=== PATIENT | female | born 1960 | race Caucasian/White ===

== ENCOUNTER 2022-01-02 16:36 | Outpatient (CLI) | payer OTHER, SELFPAY | END 2022-01-02 16:37 | disposition home or self-care (01) | LOC: KYNREF 16:37 | PROVIDERS: PCP Nurse Practitioner Family; Visit Provider Nurse Practitioner Family | DX: N39.0 Urinary tract infection, site not specified (principal); M19.90 Unspecified osteoarthritis, unspecified site | CPT/HCPCS: 87086; 87186 ==

== ENCOUNTER 2022-06-14 10:36 | Outpatient (CLI) | payer OTHER, SELFPAY ==
[2022-06-14 14:46] LABS: Basophils Absolute Auto 0.05 K/uL (0.00-0.30); Eosinophils Absolute Auto 0.08 K/uL (0.00-0.50); Eosinophils Percent Auto 1.6 % (0.0-7.0); Hematocrit 42.5 % (33.0-51.0); Hemoglobin* 14.3 gm/dL (12.0-16.0); Lymphocytes Absolute Auto 1.23 K/uL (0.90-2.90); Lymphocytes Percent Auto 24.7 % (20-44); Mean Corpuscular HGB Conc 34 gm/dL (32-36); Mean Corpuscular Hemoglobin 31 pg (26-34); Mean Corpuscular Volume 92 fL (80-100); Neutrophils Absolute Auto 3.22 K/uL (1.7-7.0); Neutrophils Percent Auto 64.7 % (42.0-72.0); Platelet Count* 220 K/uL (140-440); RDW Coefficient of Variation % 11.9 % (11.5-15.5); Red Blood Count 4.62 m/uL (4.00-5.20); White Blood Count* 4.98 K/uL (4.50-11.00)
[2022-06-14 14:54] LABS: Slide Review Reflex No
[2022-06-14 15:14] LABS: Chloride* 109 mmol/L (96-114); Potassium* 3.5 mmol/L (3.6-5.1); Sodium* 143 mmol/L (135-149)
[2022-06-14 15:16] LABS: Creatinine* 0.6 mg/dL (0.5-1.5); Estimated Glomerular Filt Rate 103 ml/min
[2022-06-14 15:17] LABS: Blood Urea Nitrogen* 14 mg/dL (7-30); Calcium* 9.4 mg/dL (8.4-10.6); Carbon Dioxide* 23 mmol/L (20-32); Glucose* 104 mg/dL (60-115)
== END 2022-06-14 10:37 | disposition home or self-care (01) ==
PROVIDERS: PCP Nurse Practitioner Family; Visit Provider Nurse Practitioner Family
DX: Z01.818 Encounter for other preprocedural examination (principal)
CPT/HCPCS: 80048; 85025; 87086

== ENCOUNTER 2022-06-15 12:40 | Outpatient (CLI) | payer OTHER, SELFPAY | END 2022-06-15 12:41 | disposition home or self-care (01) | LOC: KYNREF 15:46 | PROVIDERS: PCP Nurse Practitioner Family; Visit Provider Nurse Practitioner Family | DX: Z01.818 Encounter for other preprocedural examination (principal) | CPT/HCPCS: 87086; 87186 ==

== ENCOUNTER 2022-06-21 10:18 | Outpatient (CLI) | payer OTHER, SELFPAY | END 2022-06-21 10:19 | disposition home or self-care (01) | LOC: NFLDREF 10:18 | PROVIDERS: PCP Nurse Practitioner Family; Visit Provider Nurse Practitioner Family | DX: N39.0 Urinary tract infection, site not specified (principal) | CPT/HCPCS: 87086 ==

== ENCOUNTER 2022-11-29 15:15 | Outpatient (CLI) | payer OTHER, SELFPAY ==
--- NOTE | 2022-11-29 15:30 | CRLHL7_ITS ---
For Patients: As a result of the Century Cures Act, medical imaging exams and procedure reports are released immediately into your electronic medical record. You may view this report before your referring provider. If you have questions, please contact your health care provider. DXA BONE MINERAL DENSITY STUDY Current height (in): 67.0. Weight (lb): 275.0. Menopause age: 54. Ethnicity: White. Reason for exam: Screening. 1. Have you had a previous hip or vertebral fracture? No. 2. Have you had any fractures during your adult life which did not result from significant trauma (e.g., auto accident)? No. 3. Did either of your parents have a hip fracture? No. 4. Do you smoke? No. 5. Have you ever taken Glucocorticoids? No. 6. Do you have rheumatoid arthritis? No. 7. Do you have secondary osteoporosis? No. 8. Do you drink 3 or more alcoholic drinks per day? No. 9. Are you being treated for osteoporosis? No. 10. Have you ever taken any of the following medications: Actonel, Evista, Fosamax, Miacalcin, Reclast, Boniva, Forteo, HRT (i.e. estrogen/hormone therapy), Protelos, Prolia, Vitamin D, Calcium, other ??? please specify. ANSWER: Yes, vitamin D, calcium. 11. Do you have any of the following medical conditions: Anorexia or bulimia, asthma or emphysema, end stage renal disease, hyperparathyroidism, any seizure disorders, cancer, inflammatory bowel diseases, hysterectomy, other ??? please specify. ANSWER: No. 12. What was your maximum height (inches)? 67. 13. Do you perform weight bearing exercise regularly? No. 14. Do you regularly consume dairy products? Yes. 15. Do you drink caffeinated beverages? Yes. 16. At what age did your period start? 14. 17. Are you premenopausal? No. 18. How many full term pregnancies have you had? 0. 19. Have you ever missed your period for more than 6 months in a row (not including or menopause)? No. TECHNIQUE: Bone mineral density study was performed using the Dtime. FINDINGS: The results of the study expressed as bone mineral density (BMD) are as follows: Lumbar spine L1 to L4: BMD: 1.138 g/cm2. T-score: 0.8. Z-score: 2.2. Neck Left: BMD: 0.791 g/cm2. T-score: -0.5. Z-score: 0.8. Total Left: BMD: 1.041 g/cm2. T-score: 0.8. Z-score: 1.8. Radius Left 33%: BMD: 0.690 g/cm2. T-score: -0.1. Z-score: 1.2. IMPRESSION: Normal bone density. Scottie Santiago M.D. Diagnostic Radiologist [email or web address] Transcribed: 12:16 pm DW/Dictated by: Scottie Santiago MD @ 12/03/2022 10:28:00 AM (Electronically Signed)
== END 2022-11-29 15:16 | disposition home or self-care (01) ==
LOC: RAD 15:17
PROVIDERS: PCP Nurse Practitioner Family; Visit Provider Nurse Practitioner Family
DX: Z13.820 Encounter for screening for osteoporosis (principal)
CPT/HCPCS: 77080

== ENCOUNTER 2023-05-28 16:23 | Outpatient (CLI) | payer OTHER, SELFPAY | END 2023-05-28 16:24 | disposition home or self-care (01) | LOC: KYNREF 16:26 | PROVIDERS: PCP Nurse Practitioner Family; Visit Provider Nurse Practitioner Family | DX: R19.7 Diarrhea, unspecified (principal); L98.9 Disorder of the skin and subcutaneous tissue, unspecified | CPT/HCPCS: 83516; 86364 ==

== ENCOUNTER 2023-08-15 10:38 | Outpatient (CLI) | payer OTHER, SELFPAY | END 2023-08-15 10:39 | disposition home or self-care (01) | LOC: NFLDREF 08-28 09:32 | PROVIDERS: PCP Nurse Practitioner Family; Referring Provider Nurse Practitioner Family; Visit Provider Physician Assistant | DX: N39.0 Urinary tract infection, site not specified (principal) | CPT/HCPCS: 87086 ==

== ENCOUNTER 2024-01-23 11:43 | Outpatient (CLI) | payer OTHER, SELFPAY ==
--- OUTSIDE RECORDS SUMMARY | 2024-01-24 10:35 | XMS_ITS ---
Author Organization [facility] Address [address] [place] [address] Care Team Providers Care Automation Qtp Tester Name Role Phone Unavailable Unavailable Unavailable Surgery Details Not on file Complications Check Surgery Details section. Procedure Estimated Blood Loss Check Surgery Details section. Procedure Findings Check Surgery Details section. Procedure Specimens Taken Check Surgery Details section.
--- OUTSIDE RECORDS SUMMARY | 2024-01-24 10:35 | XMS_ITS | Clinical Summary ---
Author Organization [facility] Address [address] [place] [address] Care Team Providers Care Member Of The Legislative Assembly Name Role Phone Elsewhere, Pcp Primary Care Provider Unavailabl e Source Comments Patient records contain information from all sites at [facility]. For routine questions regarding patient records, call [phone] during business hours, M-F 8:00 AM - 5:00 PM Central Time. Record requests for emergency care only can be directed to [phone] at any time.[facility] Allergies No known active allergies Medications Medication Sig Dispensed Refills Start Date End Date Status lisinopril-hydroCHLORO thiazide (PRINZIDE,ZESTORETIC) 20-12.5 mg per tablet Take 1 tablet by mouth daily. 04/27/2022 Active Active Problems Problem Noted Date Diagnosed Date Hypertension Essential Primary 06/27/2022 Primary Osteoarthritis Hip Right 05/08/2022 Overview (05/08/2022): Added automatically from request for surgery [id number] Social History Tobacco Use Types Packs/Day Years Used Date Smoking Tobacco: Never Smokeless Tobacco: Never Tobacco Cessation:Counseling Given: Not Answered Alcohol Use Standard Drinks/Week Comments Not Currently 0 (1 standard drink = 0.6 oz pur e alcohol) Humiliation, Afraid, Rape, and Kick questionnair e Answer Date Recorded Within the last year, have y ou been afraid of your partner or ex-partner? No 07/05/2022 Within the last year, have y ou been humiliated or emotionally abused in other ways by your partner or ex-partner? No Within the last year, have y ou been kicked, hit, slapped, or otherwise physically hurt by your partner or ex-partner? No 07/05/2022 Within the last year, have y ou been raped or forced to have any kind of sexual activity by your partner or ex-partner? No 07/05/2022 Social Connection and Isolat ion Panel [NHANES] Answer Date Recorded In a typical week, how many times do you talk on the phone with family, friends, or neighbors? More than three times a week 07/05/2022 How often do you get togethe r with friends or relatives? More than three times a week 07/05/2022 How often do you attend chur or yarsanism services? More than 4 times per year 07/05/2022 Do you belong to any clubs o r organizations such as anabaptism groups, unions, fraternal or athletic groups, or school groups? Yes 07/05/2022 How often do you attend meet ings of the clubs or organizations you belong to? More than 4 times per year 07/05/2022 Are you , , di vorced, , never , or living with a partner? Never 07/05/2022 AUDIT-C Answer Date Recorded Q1: How often do you have a drink containing alc ohol? Monthly or less 07/05/2022 Q2: How many drinks containi ng alcohol do you have on a typical day when you are drinking? 1 or 2 07/05/2022 Q3: How often do you have si x or more drinks on one occasion? Never 07/05/2022 Overall Financial Resource Strain (CARDIA) Answe r Date Recorded How hard is it for you to pa y for the very basics like food, housing, medical care, and heating? Not very hard 07/05/2022 [facility] [place] [facility] Occupat ional [facility] - Occupational Stress Questionnaire Answer Date Recorded Do you feel stress - tense, restless, nervous, or anxious, or unable to sleep at night because your mind is troubled all the time - these days? Not at all 07/05/2022 Exercise Vital Sign Answer Date Recorde d On average, how many days pe r week do you engage in moderate to strenuous exercise (like a brisk walk)? 0 days 07/05/2022 On average, how many minutes do you engage in exercise at this level? 150+ min 07/05/2022 Hunger Vital Sign Answer Date Recorded Within the past 12 months, y ou worried that your food would run out before you got the money to buy more. Never true 07/05/19 Within the past 12 months, t he food you bought just didn't last and you didn't have money to get more. Never true 07/05/2022 PRAPARE - Transportation Answer Date Re corded In the past 12 months, has l ack of transportation kept you from medical appointments or from getting medications? No 06/11 In the past 12 months, has l ack of transportation kept you from meetings, work, or from getting things needed for daily living? No 07/05/2022 Housing Stability Vital Sign Answer Jose e Recorded In the last 12 months, was t here a time when you were not able to pay the mortgage or rent on time? No 07/05/2022 In the last 12 months, how many places have you lived? 1 07/05/2022 In the last 12 months, was t here a time when you did not have a steady place to sleep or slept in a long-term (including now)? No 07/05/2022 Nutrition Answer Date Recorded Nutrition: EVOO Fat Source Yes 07/05 On average, how many serving s of fruits and vegetables do you eat per day (serving size is equal to 1 cup or approximately the size of a tennis ball)? 2-3 07/05/2022 Dental Answer Date Recorded Dental: Regular Dentist Yes 07/05/19 Employment Answer Date Recorded Employment status Employed but not working due t o illness or injury 07/05/2022 Sex and Gender Information Value Date Recorded Sex Assigned at Female 08/11/2022 4:09 PM WELLNESS SPA MANAGER Gender Identity Female 08/11/2022 4:09 PM WELLNESS SPA MANAGER Sexual Orientation Choose not to disclose 2022 4:09 PM WELLNESS SPA MANAGER Last Filed Vital Signs Vital Sign Reading Time Taken Comments Blood Pressure 141/65 06/27/2022 1:18 PM WELLNESS SPA MANAGER Pulse 75 06/27/2022 1:18 PM WELLNESS SPA MANAGER Temperature 36.7 ??C (98.1 ??F) 06/27/2022 1:18 PM CS T Respiratory Rate 16 06/27/2022 9:00 AM WELLNESS SPA MANAGER Oxygen Saturation 97% 06/27/2022 1:18 PM WELLNESS SPA MANAGER Inhaled Oxygen Concentration - - Weight 130 kg (286 lb 2.2 oz) 06/26/2022 6:45 AM WELLNESS SPA MANAGER Height 172 cm (5' 7.72) 06/26/2022 6:45 AM WELLNESS SPA MANAGER Body Mass Index 43.87 06/26/2022 6:45 AM WELLNESS SPA MANAGER Plan of Treatment Health Maintenance Due Date Last Done Comments CT Colonography 1962 Cervical Cancer Screening 1962 Cologuard 1962 Colonoscopy 1962 Colorectal Cancer Screening 1962 Creatinine Level (Kidney Function Test) 1962 FIT 1962 Fasting Glucose for Diabetes Screening 1962 HIV Screening 1962 Hepatitis C Screening 1962 Lipid (Cholesterol) Screening 1962 Office Visit for Blood Pressure Check / Re-check 1962 Potassium Level 1962 Sodium Level 1962 Zoster Vaccines (1 of 2) 2012 Mammogram 10/05/2022 10/05/2021 Depression Screening (Annual PHQ-2) 06/10/2023 Influenza Vaccine (#1) 2024 , 03/07/2022, 03/08/2021, Additional history exists DTaP,Tdap,and Td Vaccines (3 - Td or Tdap) 02/16/2030 02/17/2020, 06/17/2009 COVID-19 Vaccine Completed 04/05/2023, , 10/18/2021, Additional history exists Pneumococcal vaccine (0-64 years) Aged Out No longer eligible based on patient's age to complete this topic Medical Devices Implanted Type Area Car Bracer Device Identifier Shelf Expiration Date Model / Serial / Lot Scrw Hex 6.5x25 - [id number] Implanted:Qty : 1 on 06/26/2022 by Javier Stephen M.D. at [facility] Hip Implant Right: Hip [place] [id number] 03/31/2025 4065-2262 / / [id number] Lnr X3 10d Dontae 32 - [id number] Implanted:Qty : 1 on 06/26/2022 by Javier Stephen M.D. at [facility] Hip Implant Right: Hip [place] [id number] 10/23/2022 623-10-32 E / / [id number] Shll Acet Trd Chl 52e - [id number] Implanted:Qty : 1 on 06/26/2022 by Javier Stephen M.D. at [facility] Hip Implant Right: Hip [place] [id number] 03/19/2027 702-04-52 E / / [id number] Accolade Ii 127 Neck Angle Hip Stem Implanted:Qty : 1 on 06/26/2022 by Javier Stephen M.D. at [facility] Hip Implant Right: Hip [place] [id number] 04/24/2027 1474-7493 / / [id number] Fem Hd Blx -4x32 - [id number] Implanted:Qty : 1 on 06/26/2022 by Javier Stephen M.D. at [facility] Hip Implant Right: Hip [place] [id number] 10/17/2026 6570-0-03 2 / / [id number] Knee Implant Knee Implant Bilatera l: Knee Procedures Procedure Name Priority Date/Time Associated Diagnosis Comments OUTSIDE MG MAMMOGRAM Routine 10/05/2021 3:50 PM CDT from Last 3 Months or Most Recently Relevant to Health Maintenance Results * MAMMO SCREEN, BILAT, W/CAD-Outside Mammogram (10/05/2021 3:50 PM CDT) Narrative IIMS - 03/19/2022 4:18 PM CDT This order has been created and auto-finalized to support the import of outside images. If available, original interpretation can be found on the Media Tab in Chart Review, in Document Viewer, or as an image in QREADS. If a re-interpretation or overread is required please follow defined workflow. ?? Provider Not In System IMG BI PROCEDURES IIMS NA from Last 3 Months or Most Recently Relevant to Health Maintenance Advance Directives For more information, please contact: [phone] Documents on File Type Date Recorded Patient Suction Worker Expl anation Advance Directives 06/04/2022 12:10 PM LUDY DY/ORGAN DONATION * Full Code (Latest Code Status on File) Date Activated Date Inactivated Comments 06/26/2022 11:01 AM 06/27/2022 3:50 PM Question Answer Comments Full Code: Not Discussed Due to: Patient not available Care Teams Member Of The Legislative Assembly Relationship Specialty Start Date End Date Elsewhere, Pcp PCP - General Internal Medicine 06/26/22
--- OUTSIDE RECORDS SUMMARY | 2024-01-24 10:35 | XMS_ITS | Referral Summary ---
Author Organization [facility] Address [address] [place] [address] Care Team Providers Care Delivery Analyst Name Role Phone Elsewhere, Pcp Primary Care Provider Unavailabl e Source Comments Patient records contain information from all sites at [facility]. For routine questions regarding patient records, call [phone] during business hours, M-F 8:00 AM - 5:00 PM Central Time. Record requests for emergency care only can be directed to [phone] at any time.[facility] Allergies No known active allergies Medications Medication Sig Dispensed Refills Start Date End Date Status lisinopril-hydroCHLORO thiazide (PRINZIDE,ZESTORETIC) 20-12.5 mg per tablet Take 1 tablet by mouth daily. 04/27/2022 Active Active Problems Problem Noted Date Diagnosed Date Hypertension Essential Primary 06/27/2022 Primary Osteoarthritis Hip Right 05/08/2022 Overview (05/08/2022): Added automatically from request for surgery [id number] Social History Tobacco Use Types Packs/Day Years [...] How often do you attend chur or scientologist services? More than 4 times per year 07/05/2022 Do you belong to any clubs o r organizations such as anglican groups, unions, fraternal or athletic groups, or [...] care, and heating? Not very hard 07/05/2022 [facility] [place] of Occupat ional Health - Occupational Stress [...] place to sleep or slept in a chcf (including now)? No 07/05/2022 Nutrition Answer Date [...] Sex Assigned at Female 08/11/2022 4:09 PM WHEAT WASHER Gender Identity Female 08/11/2022 4:09 PM WHEAT WASHER Sexual Orientation Choose not to disclose 2022 4:09 PM WHEAT WASHER Last Filed Vital Signs Vital Sign Reading Time Taken Comments Blood Pressure 141/65 06/27/2022 1:18 PM WHEAT WASHER Pulse 75 06/27/2022 1:18 PM WHEAT WASHER Temperature 36.7 ??C (98.1 ??F) 06/27/2022 1:18 PM CS T Respiratory Rate 16 06/27/2022 9:00 AM WHEAT WASHER Oxygen Saturation 97% 06/27/2022 1:18 PM WHEAT WASHER Inhaled Oxygen Concentration - - Weight 130 kg (286 lb 2.2 oz) 06/26/2022 6:45 AM WHEAT WASHER Height 172 cm (5' 7.72) 06/26/2022 6:45 AM WHEAT WASHER Body Mass Index 43.87 06/26/2022 6:45 AM WHEAT WASHER Plan of Treatment Not on file Medical Devices Implanted Type Area Envelope Adjuster Device Identifier Shelf Expiration Date Model / Serial / Lot Scrw Hex 6.5x25 - [id number] Implanted:Qty : 1 on 06/26/2022 by Javier Stephen M.D. at [facility] Hip Implant Right: Hip [place] [id number] 03/31/2025 1261-4189 / / [id number] Lnr X3 10d Dontae 32 - [id number] Implanted:Qty : 1 on 06/26/2022 by Javier Stephen M.D. at [facility] Hip Implant Right: Hip [place] [id number] 10/23/2022 623-10-32 E / / [id number] Shll Acet Trd Chl 52e - [id number] Implanted:Qty : 1 on 06/26/2022 by Javier Stephen M.D. at [facility] Hip Implant Right: Hip [place] [id number] 03/19/2027 702-04-52 E / / [id number] Accolade Ii 127 Neck Angle Hip Stem Implanted:Qty : 1 on 06/26/2022 by Javier Stephen M.D. at [facility] Hip Implant Right: Hip [place] [id number] 04/24/2027 8037-4193 / / [id number] Fem Hd Blx -4x32 - [id number] Implanted:Qty : 1 on 06/26/2022 by Javier Stephen M.D. at [facility] Hip Implant Right: Hip [place] [id number] 10/17/2026 6570-0-03 2 / [id number] Knee Implant Knee Implant Bilatera l: Knee [...] Advance Directives For more information, please contact: [phone] Documents on File Type Date Recorded Patient Photo Optics Technician Expl anation Advance Directives 06/04/2022 12:10 PM LUDY DY/ORGAN DONATION * Full Code (Latest Code Status on File) Date Activated Date Inactivated Comments 06/26/2022 11:01 AM 06/27/2022 3:50 PM Question Answer Comments Full Code: Not Discussed Due to: Patient not available Care Teams Delivery Analyst Relationship Specialty Start Date End Date Elsewhere, Pcp PCP - General Internal Medicine 06/26/22
== END 2024-01-23 11:44 | disposition home or self-care (01) ==
LOC: NFLDREF 01-24 10:32
PROVIDERS: PCP Nurse Practitioner Family; Referring Provider Nurse Practitioner Family; Visit Provider Nurse Practitioner Family
DX: R82.90 Unspecified abnormal findings in urine
CPT/HCPCS: 87086; 87186

== ENCOUNTER 2024-06-30 07:52 | Outpatient (CLI) | payer OTHER, SELFPAY | END 2024-06-30 07:53 | disposition home or self-care (01) | LOC: NFLDREF 07-01 00:52 | PROVIDERS: PCP Nurse Practitioner Family; Referring Provider Nurse Practitioner Family; Visit Provider Nurse Practitioner Family | DX: N39.0 Urinary tract infection, site not specified (principal); R31.9 Hematuria, unspecified; B96.20 Unspecified Escherichia coli [E. coli] as the cause of diseases classified elsewhere | CPT/HCPCS: 81001; 87086; 87186 ==

== ENCOUNTER 2024-07-02 11:02 | Outpatient (CLI) | payer OTHER, SELFPAY | END 2024-07-02 11:03 | disposition home or self-care (01) | PROVIDERS: PCP Nurse Practitioner Family; Visit Provider Nurse Practitioner Family | DX: E78.5 Hyperlipidemia, unspecified (principal); I10 Essential (primary) hypertension; D72.819 Decreased white blood cell count, unspecified | CPT/HCPCS: 80053; 80061; 85025 ==

== ENCOUNTER 2024-07-08 10:33 | Outpatient (CLI) | payer OTHER, SELFPAY | END 2024-07-08 10:34 | disposition home or self-care (01) | LOC: US 10:34 | PROVIDERS: PCP Nurse Practitioner Family; Visit Provider Nurse Practitioner Family | DX: R74.8 Abnormal levels of other serum enzymes (principal); K76.89 Other specified diseases of liver; K76.0 Fatty (change of) liver, not elsewhere classified | CPT/HCPCS: 76705 ==

== ENCOUNTER 2024-11-15 06:43 | Emergency (ER) | payer OTHER, SELFPAY ==
--- OUTSIDE RECORDS SUMMARY | 2009-07-13 06:30 | XMS_ITS | Continuity of Care Document ---
Author Organization [facility] Address [address] [address] [place] [address] Phone Care Team Providers Care Cotton Cleaner Name Role Phone Yasir Avina MD Unavailable Unavailable Allergies, Adverse Reactions, Alerts Substance Reaction Status Criticality No Known allergies Medications Medication Instructions Dosage Effective Dates (start - stop) Status Comments lisinopril-hydrochlorothiaz beatriz 20 mg-25 mg Tab Take one tablet by mouth daily - Active multivitamin Tab Take one tablet by mouth daily - Active Martinic 110 mg-0.5 mg Cap Use as directed 2009 - Active HIGH POTENCY IRON (unknown strength) Use BID per package Not Available - Active MiralaxBisacodylMagCit Colon Prep 2 tabs bisacodyl each containing 5 mg of bisacodyl 1-8.3 oz bottle Miralax (238 gm) 64 oz Gatorade liquid (NOT red; NOT powdered)Regular Gatorade , Gatorade G2 , Powerade or PoweradeZero are acceptable. 1-10 oz bottle Mag Citrate (NOT red) - Active Procedures Procedure Date Colonoscopy Flex; Dx (sep Pro) 10 Ugi Endo; Dx W/wo Collec Specm 10 Init Inpt Cons New/est Mod-hi 9 Ugi Endo; Dx W/wo Collec Specm 08 Advance Directives Directive Yes / No Effective Date File Name No Information Encounters Encounter Description Practice Location Reason(s) For Visit Diagnoses Date Provider Providers Copied on Encounter [facility], [address] [address], [place], [place], [address], tel:[phone] [facility] Hematochezia /melena Fe 0 Kailyn Cooley. [address] [facility] [address], [place], [id number], . tel:[phone] [facility], [address] [address], [place], [place], [address], [phone] [facility] Post-op Aftercare NecHematoche cammy/melenaBa riatric Surgery Status 0 No Information Init Inpt Cons New/est Mod-hi [facility], [address] [address], [place], [place], [address], [phone] [facility] No Information 9 No Information Referring Provider: Leonel Al, [address] [place], [address]. tel:[phone] [facility], [address] [address], [place], [place], [address], tel:[phone] [facility] No Information [address]. [address] [facility] [address], [place], [place], [id number], . tel:[phone] Referring Provider: Leonel Al, [address] [place], [address]. tel:[phone] Family History Family Member Type Diagnosis Age At Onset No Information Payers Payer name Insurance type Covered libertarian ID Authoriza tion(s) [employer] CI [id number] Social History Type Description Quantity Date Captured Comments Sex Female Smoking Status No Information Chief Complaint And Reason For Visit No Information Reason For Referral Reason For Referral No Information History Of Present Illness Encounter Date Complaint History Of Prese nt Illness No Information Functional Status Date Functional Assessmen t No Information Instructions Date Instruction Additional Infor mation No Information Assessments Type Assessment Date No Information Patient Care Teams Name Effective Dates (start - stop) Status Members No Information
--- OUTSIDE RECORDS SUMMARY | 2009-07-13 06:30 | XMS_ITS | Continuity of Care Document ---
Author Organization [facility] Address [address] [address] [place] [address] Phone Care Team Providers Care Magnetic Tester Name Role Phone Yasir Avina MD Unavailable [...] Diagnoses Date Provider Providers Copied on Encounter [facility], [address] [address], [place], [place], [address], tel:[phone] [facility] Hematochezia /melena Fe 0 Kailyn Cooley. [address] [facility] [address], [place], [id number], . tel:[phone] [facility], [address] [address], [place], [place], [address], [phone] [facility] Post-op Aftercare NecHematoche cammy/melenaBa riatric Surgery Status 0 No Information Init Inpt Cons New/est Mod-hi [facility], [address] [address], [place], [place], [address], [phone] [facility] No Information 9 No Information Referring Provider: Leonel Al, [address] [place], [address]. tel:[phone] [facility], [address] [address], [place], [place], [address], tel:[phone] [facility] No Information 9 [address]. [address] [facility] [address], [place], [place], [id number], . tel:[phone] Referring Provider: Leonel Al, [address] [place], [address]. tel:[phone] Family History Family Member Type Diagnosis Age At Onset No Information Payers Payer name Insurance type Covered alliance party ID Authoriza tion(s) [employer] CI [id number] Social History Type Description Quantity Date Captured [...]
[2024-11-15 06:45] VITALS: BP 176/109; PULSE 56; RESP 18; TEMP 36.9; O2SAT 100; BMI 45.4
[2024-11-15 07:07] LABS: Appearance Urine Slightly Cloudy (Clear); Bilirubin Urine Negative (Negative); Blood Urine Negative (Negative); Color Urine Yellow (Yellow); Glucose Urine Negative (Negative); Ketones Urine Negative (Negative); Leukocyte Esterase Urine 2+ (Negative); Nitrite Urine Negative (Negative); Protein Urine Negative (Negative); Urobilinogen Urine 0.2 (0.2-1.0); pH Urine 5.5 (5.0-8.5)
[2024-11-15 07:15] LABS: Bacteria Urine Many; Squamous Epithelial Cell Urine Moderate (None-Few); WBC Urine 25-50 (0-5)
--- NOTE | 2024-11-15 07:25 | ED_ITS ---
HPI - General Adult General Chief complaint: Abdominal Pain <Nia Young MD - Last Filed: 11/18/24 23:57> Stated complaint: abdominal pain <Nia Young MD - Last Filed: 11/18/24 23:57> Time Seen by Provider: 11/15/24 07:02 <Nia Young MD - Last Filed: 11/18/24 23:57> Source: patient <Nia Young MD - Last Filed: 11/18/24 23:57> Mode of arrival: ambulatory <Nia Young MD - Last Filed: 11/18/24 23:57> Limitations: no limitations <Nia Young MD - Last Filed: 11/18/24 23:57> History of Present Illness HPI narrative: 64-year-old female presents the emergency department with right flank pain that started last night. No fevers. Does feel mildly nauseated but no vomiting. Does true dysuria but does have some mild discomfort in the suprapubic region and what she describes as urgency and frequency but no true dysuria or burning. No vaginal discharge. Did try taking a her mg of ibuprofen about 5 hours ago and it did help somewhat. She is prone to urinary tract infections and has been told in the past if she develops flank pain with them, she should come to the emergency department or urgent care because she would need further imaging. She denies a history of resistant infection or antibiotic allergies. Does not believe she has had prior kidney infections. She does not have a personal history of kidney stones but does have a family history of such. Postmenopausal. No vaginal bleeding. Past medical history is notable for obesity, hypertension, arthritis of multiple sites. Home meds are amlodipine, hydrochlorothiazide. She is also using some medically tied for obesity and takes a baby aspirin. Nonsmoker. Only prior abdominal surgery is cholecystectomy. ROS is notable for the flank in urinary symptoms as above, otherwise denies times 12 systems. <Nia Young MD - Last Filed: 11/18/24 23:57> Related Data Home medications: Home Medications ?Medication ?Instructions ?Recorded ?Confirmed aspirin 81 mg tablet,delayed 81 mg PO QDAY 07/02/22 release Previous Rx's ?Medication ?Instructions ?Recorded meclizine 25 mg tablet 25 mg PO TID 10 days #30 tab s 10/02/22 amlodipine 5 mg tablet (Norvasc) 5 mg PO QDAY #90 tabs 07/02/24 hydrochlorothiazide 25 mg tablet 25 mg PO QAM #90 tabs 07/02/24 semaglutide 0.25 mg or 0.5 mg (2 0.25 mg (0.368 mL) aguilar bcut QWEEK 07/02/24 mg/3 mL) subcutaneous pen injector #1.84 mL (Ozempic) tamsulosin 0.4 mg capsule (Flomax) 0.4 mg PO DAILY #14 caps 11/15/24 <Nia Young MD - Last Filed: 11/18/24 23:57> Allergies/adverse reactions: Allergies Allergy/AdvReac Type Severity Reaction Status Date / Time No Known Drug Allergies Allergy Verified 07/02/24 10:19 <Nia Young MD - Last Filed: 11/18/24 23:57> [facility] Medical History: Medical History Sebaceous cyst ?L72.3 - Sebaceous cyst (ICD-10) Essential hypertension ?I10 - Essential (primary) hypertension (ICD-10) Morbid obesity ?E66.01 - Morbid (severe) obesity due to excess calories (ICD-10) Iron deficiency anemia ?D50.9 - Iron deficiency anemia, unspecified (ICD-10) Dupuytren's contracture of right hand ?M72.0 - Palmar fascial fibromatosis [Dupuytren] (ICD-10) History of benign breast biopsy ?Z98.890 - Other specified postprocedural states (ICD-10) <Nia Young MD - Last Filed: 11/18/24 23:57> Surgical History: Surgical History History of arthroplasty of right hip ?Z98.890 - Other specified postprocedural states (ICD-10) History of total right knee replacement ?Z96.651 - Presence of right artificial knee joint (ICD-10) History of total left knee replacement ?Z96.652 - Presence of left artificial knee joint (ICD-10) History of tonsillectomy ?Z90.89 - Acquired absence of other organs (ICD-10) History of Emmanuelle-en-Y gastric bypass ?Z98.84 - Bariatric surgery status (ICD-10) History of endometrial ablation ?Z98.890 - Other specified postprocedural states (ICD-10) History of cholecystectomy ?Z90.49 - Acquired absence of other specified parts of digestive tract (ICD- 10) <Nia Young MD - Last Filed: 11/18/24 23:57> Family History: Family History Father Stroke Heart disease Brother Diabetes Heart disease Coronary artery disease Brother Diabetes Stroke Mother High blood pressure Hyperlipidemia Prediabetes Other Osteoarthritis <iNa Young MD - Last Filed: 11/18/24 23:57> Social History: Social History Narrative: Not . No children. Non-smoker. No illicit drug use. Alcohol, rare. Smoking Status: Never smoker How often do you have a drink containing alcohol: never AUDIT-C Alcohol total score: 0 Non-prescribed substance use: denies use <Nia Young MD - Last Filed: 11/18/24 23:57> Exam Const: Vital Signs, click to edit/add: Vital Signs - 24 hr 11/15/24 06:45 Temperature 98.4 F Pulse Rate [Left P ulse Oximeter] 56 L Respiratory Rate 18 Blood Pressure [Ri ght Upper Arm] 176/109 H Pulse Oximetry 100 Oxygen Delivery Me thod Room Air <Nia Young MD - Last Filed: 11/18/24 23:57> Vital Signs, click to edit/add: Vital Signs - 24 hr 11/15/24 06:45 Temperature 98.4 F Pulse Rate [Left P ulse Oximeter] 56 L Respiratory Rate 18 Blood Pressure [Ri ght Upper Arm] 176/109 H Pulse Oximetry 100 Oxygen Delivery Me thod Room Air <Rai Hays MD - Last Filed: 11/15/24 10:13> Documenting provider has reviewed patient's vital signs: yes <Nia Young MD - Last Filed: 11/18/24 23:57> Common normals: no apparent distress and alert <MD Miguel Angel Berrios Last Filed: 11/18/24 23:57> General appearance: cooperative and well kempt <Nia Young MD - Last Filed: 11/18/24 23:57> Other: Appears well-nourished, well-hydrated, excellent historian. <Nia Young MD - Last Filed: 11/18/24 23:57> HENMT: Common normals: normocephalic <Nia Young MD - Last Filed: 11/18/24 23:57> Head and scalp: normocephalic <MD Miguel Angel Berrios Last Filed: 11/18/24 23:57> Mouth: oral and palatal mucosa normal <MD Miguel Angel Berrios Last Filed: 11/18/24 23:57> Eye: Common normals: conjunctivae normal <MD Miguel Angel Berrios Last Filed: 11/18/24 23:57> General eye: normal appearance of both eyes <MD Miguel Angel Berrios Last Filed: 11/18/24 23:57> Conjunctiva: conjunctiva(e) normal <MD Miguel Angel Berrios Last Filed: 11/18/24 23:57> Neck & C-Spine: Common normals: full ROM and no lymphadenopathy <MD Miguel Angel Berrios Last Filed: 11/18/24 23:57> General: normal visual inspection <MD Miguel Angel Berrios Last Filed: 11/18/24 23:57> Resp: Common normals: normal respiratory effort, no use of accessory muscles and clear to auscultation bilaterally <MD Miguel Angel Berrios Last Filed: 11/18/24 23:57> Effort & inspection: able to speak in complete sentences <MD Miguel Angel Berrios Last Filed: 11/18/24 23:57> Auscultation: clear to auscultation bilaterally <Nia Young MD - Last Filed: 11/18/24 23:57> Cardio: Common normals: regular rate, regular rhythm, S1 normal heart sound, S 2 normal heart sound and no murmurs <Nia Young MD - Last Filed: 11/18/24 23:57> Rate: regular rate <Nia Young MD - Last Filed: 11/18/24 23:57> Rhythm: regular rhythm <Nia Young MD - Last Filed: 11/18/24 23:57> Heart sounds: S1 normal and S2 normal <MD Miguel Angel Beriros Last Filed: 11/18/24 23:57> GI: Common normals: Normal to inspection, nondistended, normoactive bowel sounds present and soft to palpation <Nia Young MD - Last Filed: 11/18/24 23:57> Palpation: soft <Nia Young MD - Last Filed: 11/18/24 23:57> Other: Mild suprapubic tenderness but no rebound tenderness or guarding. I really cannot palpate her organs well enough to to discern any mass or enlargement. <Nia Young MD - Last Filed: 11/18/24 23:57> : Other: Mild right-sided CVA tenderness present, nothing on the left. <Nia Young MD - Last Filed: 11/18/24 23:57> Extremity: Common normals: normal to inspection and normal capillary refill <MD Miguel Angel Berrios Last Filed: 11/18/24 23:57> Other: Well-healed right total knee arthroplasty scar <MD Miguel Angel Berrios Last Filed: 11/18/24 23:57> Neuro: Sensorium/orientation: alert <MD Miguel Angel Berrios Last Filed: 11/18/24 23:57> Speech: speech normal <MD Miguel Angel Berrios Last Filed: 11/18/24 23:57> Psych: Appearance: well kempt <MD Miguel Angel Berrios Last Filed: 11/18/24 23:57> Attitude: engaged <Nia Young MD - Last Filed: 11/18/24 23:57> Activity/motor behavior: appropriate eye contact <Nia Young MD - Last Filed: 11/18/24 23:57> Insight: insight good <Nia Young MD - Last Filed: 11/18/24 23:57> Judgement: judgment good <Nia Young MD - Last Filed: 11/18/24 23:57> Skin: Common normals: no rashes or lesions noted <Nia Young MD - Last Filed: 11/18/24 23:57> General skin exam: no rashes or lesions noted <Nia Young MD - Last Filed: 11/18/24 23:57> Course Course ED Course: 64-year-old female with right flank pain suspicious for kidney stone versus pyelonephritis. Cannot exclude musculoskeletal pain, radiculopathy, pancreatitis, intestinal abnormality, amongst others. Recommended urinalysis. If signs of infection, will proceed with CT scan with contrast. If negative for infection but positive for blood, will proceed with CT without contrast suspicious more for kidney stone. She really has had quite a bit of ibuprofen this morning, I will order 5 mg of oxycodone with Zofran, place peripheral IV, obtain typical intra-abdominal labs and await findings. Will likely need to hand over care to incoming day shift partner. <Nia Young MD - Last Filed: 11/18/24 23:57> Vital Signs Vital signs: Initial Vital Signs Temperature 98.4 F 11/15/24 06:45 Temperature Source Oral 11/15/24 06:45 Pulse Rate 56 L 11/15/24 06:45 Pulse Rhythm Regular 11/15/24 06:45 Respiratory Rate 18 11/15/24 06:45 Blood Pressure 176/109 H 11/15/24 06:45 Blood Pressure Mean 131 H 11/15/24 06:45 Blood Pressure Position Sitting 11/15/24 06:45 Pulse Oximetry 100 11/15/24 06:45 Oxygen Delivery Method Room Air 11/15/24 06:45 Vital Signs Temperature 98.4 F 11/15/24 06:45 Pulse Rate 56 L 11/15/24 06:45 Respiratory Rate 18 11/15/24 06:45 Blood Pressure 176/109 H 11/15/24 06:45 Pulse Oximetry 100 11/15/24 06:45 Oxygen Delivery Method Room Air 11/15/24 06:45 Temperature 98.4 F 11/15/24 06:45 Pulse Rate 56 L 11/15/24 06:45 Respiratory Rate 18 11/15/24 06:45 Blood Pressure 176/109 H 11/15/24 06:45 Pulse Oximetry 100 11/15/24 06:45 Oxygen Delivery Method Room Air 11/15/24 06:45 <Nia Young MD - Last Filed: 11/18/24 23:57> Initial Vital Signs Temperature 98.4 F 11/15/24 06:45 Temperature Source Oral 11/15/24 06:45 Pulse Rate 56 L 11/15/24 06:45 Pulse Rhythm Regular 11/15/24 06:45 Respiratory Rate 18 11/15/24 06:45 Blood Pressure 176/109 H 11/15/24 06:45 Blood Pressure Mean 131 H 11/15/24 06:45 Blood Pressure Position Sitting 11/15/24 06:45 Pulse Oximetry 100 11/15/24 06:45 Oxygen Delivery Method Room Air 11/15/24 06:45 Vital Signs Temperature 98.4 F 11/15/24 06:45 Pulse Rate 56 L 11/15/24 06:45 Respiratory Rate 18 11/15/24 06:45 Blood Pressure 176/109 H 11/15/24 06:45 Pulse Oximetry 100 11/15/24 06:45 Oxygen Delivery Method Room Air 11/15/24 06:45 Temperature 98.4 F 11/15/24 06:45 Pulse Rate 56 L 11/15/24 06:45 Respiratory Rate 18 11/15/24 06:45 Blood Pressure 176/109 H 11/15/24 06:45 Pulse Oximetry 100 11/15/24 06:45 Oxygen Delivery Method Room Air 11/15/24 06:45 <Rai Hays MD - Last Filed: 11/15/24 10:13> Medications Administered Medications: Discontinued Medications Generic Name Dose Route Start Last Admin Trade Name Freq PRN Reason Stop Dose Admin Ondansetron HCl 4 mg 11/15/24 07:21 11/15/24 07:42 Ondansetron Odt 4 Mg Tab PO 11/15/24 07:22 4 mg ONCE ONE Administration Oxycodone HCl 5 mg 11/15/24 07:21 11/15/24 07:42 Oxycodone 5 Mg Tablet PO 11/15/24 07:22 5 mg ONCE ONE Administration <Nia Young MD - Last Filed: 11/18/24 23:57> Discontinued Medications Generic Name Dose Route Start Last Admin Trade Name Bubba PRN Reason Stop Dose Admin Ondansetron HCl 4 mg 11/15/24 07:21 11/15/24 07:42 Ondansetron Odt 4 Mg Tab PO 11/15/24 07:22 4 mg ONCE ONE Administration Oxycodone HCl 5 mg 11/15/24 07:21 11/15/24 07:42 Oxycodone 5 Mg Tablet PO 11/15/24 07:22 5 mg ONCE ONE Administration <Rai Hays MD - Last Filed: 11/15/24 10:13> Medical Decision Making [facility] Narrative Medical decision making narrative: Patient is a 64-year-old woman who presents with right flank pain. She has evidence of UTI as well as a punctate kidney stone. This time I did recommend plenty of fluids at home Flomax for the next 2 weeks straining of urine. Cipro floxacillin for 5 days and Vicodin as needed for the next several days no driving or using any machinery. Patient follow-up with her primary physicians coming week. <Rai Hays MD - Last Filed: 11/15/24 10:13> Lab Data Lab results reviewed: Yes I reviewed the patient's lab results <Nia Young MD - Last Filed: 11/18/24 23:57> Lab results narrative: Urinalysis suspicious for infection with leukocyte esterase, white cells and many bacteria. Will proceed with CT with contrast. <Nia Young MD - Last Filed: 11/18/24 23:57> Labs: Lab Results 11/15/24 11/15/24 11/15/24 Range/Units 06:55 07:30 07:38 WBC 4.91 (4.50-11.00) K/uL RBC 4.20 (4.00-5.20) m/uL Hgb 12.1 (12.0-16.0) gm/dL Hct 36.8 (33.0-51.0) % MCV 88 (80-100) fL MCH 29 (26-34) pg MCHC 33 (32-36) gm/dL RDW Coeff of Dinah 12.8 (11.5-15.5) % Plt Count 159 (140-440) K/uL Neut % (Auto) 63.5 (42.0-72.0) % Lymph % (Auto) 25.5 (20-44) % [place] % (Auto) 9.2 (0.0-11.0) % Eos % (Auto) 1.0 (0.0-7.0) % Baso % (Auto) 0.6 (0.0-3.0) % Neut # (Auto) 3.12 (1.7-7.0) K/uL Lymph # (Auto) 1.25 (0.90-2.90) K/uL [place] # (Auto) 0.50 (0.00-0.90) K/UL Eos # (Auto) 0.05 (0.00-0.50) K/uL Baso # (Auto) 0.03 (0.00-0.30) K/uL Abs Immat Gran (auto) 0.01 (0.00-0.30) K/uL Imm/Tot Granulo (auto) 0.2 % Sodium 140 (135-149) mmol/L Potassium 3.6 (3.6-5.1) mmol/L Chloride 111 (96-114) mmol/L Carbon Dioxide 22 (20-32) mmol/L Anion Gap 7 (7-15) mEq/L BUN 16 (7-30) mg/dL Creatinine 0.7 (0.5-1.5) mg/dL Estimated Creat Clear 56.72 Estimated GFR 98 ml/min Glucose 110 (60-115) mg/dL Lactate 1.8 (0.5-1.9) mmol/L Calcium 8.9 (8.4-10.6) mg/dL Total Bilirubin 0.6 (0.1-1.5) mg/dL AST 28 (12-35) U/L ALT 24 (4-35) U/L Alkaline Phosphatase 66 (40-150) U/L C-Reactive Protein 0.5 (0.5-1.0) mg/dL Total Protein 6.0 (6.0-8.3) g/dL Albumin 3.6 (3.3-5.0) g/dL Lipase 113 (23-300) U/L Urine Color Yellow (Yellow) Urine Appearance Slightly Cloudy A (Clear) Urine pH 5.5 (5.0-8.5) Ur Specific [place] 1.020 (1.000-1.030) Urine Protein Negative (Negative) Urine Glucose (UA) Negative (Negative) Urine Ketones Negative (Negative) Urine Blood Negative (Negative) Urine Nitrite Negative (Negative) Urine Bilirubin Negative (Negative) Urine Urobilinogen 0.2 (0.2-1.0) Ur Leukocyte Esterase 2+ A (Negative) Urine RBC 5-10 A (0-2) Urine WBC 25-50 A (0-5) Ur Squamous Epith Cells Moderate A (None-Few) Urine Bacteria Many A (None) POC Creatinine 0.9 (0.6-1.3) mg/dl <Nia Young MD - Last Filed: 11/18/24 23:57> Lab Results 11/15/24 11/15/24 11/15/24 Range/Units 06:55 07:30 07:38 WBC 4.91 (4.50-11.00) K/uL RBC 4.20 (4.00-5.20) m/uL Hgb 12.1 (12.0-16.0) gm/dL Hct 36.8 (33.0-51.0) % MCV 88 (80-100) fL MCH 29 (26-34) pg MCHC 33 (32-36) gm/dL RDW Coeff of Dinah 12.8 (11.5-15.5) % Plt Count 159 (140-440) K/uL Neut % (Auto) 63.5 (42.0-72.0) % Lymph % (Auto) 25.5 (20-44) % [place] % (Auto) 9.2 (0.0-11.0) % Eos % (Auto) 1.0 (0.0-7.0) % Baso % (Auto) 0.6 (0.0-3.0) % Neut # (Auto) 3.12 (1.7-7.0) K/uL Lymph # (Auto) 1.25 (0.90-2.90) K/uL [place] # (Auto) 0.50 (0.00-0.90) K/UL Eos # (Auto) 0.05 (0.00-0.50) K/uL Baso # (Auto) 0.03 (0.00-0.30) K/uL Abs Immat Gran (auto) 0.01 (0.00-0.30) K/uL Imm/Tot Granulo (auto) 0.2 % Sodium 140 (135-149) mmol/L Potassium 3.6 (3.6-5.1) mmol/L Chloride 111 (96-114) mmol/L Carbon Dioxide 22 (20-32) mmol/L Anion Gap 7 (7-15) mEq/L BUN 16 (7-30) mg/dL Creatinine 0.7 (0.5-1.5) mg/dL Estimated Creat Clear 56.72 Estimated GFR 98 ml/min Glucose 110 (60-115) mg/dL Lactate 1.8 (0.5-1.9) mmol/L Calcium 8.9 (8.4-10.6) mg/dL Total Bilirubin 0.6 (0.1-1.5) mg/dL AST 28 (12-35) U/L ALT 24 (4-35) U/L Alkaline Phosphatase 66 (40-150) U/L C-Reactive Protein 0.5 (0.5-1.0) mg/dL Total Protein 6.0 (6.0-8.3) g/dL Albumin 3.6 (3.3-5.0) g/dL Lipase 113 (23-300) U/L Urine Color Yellow (Yellow) Urine Appearance Slightly Cloudy A (Clear) Urine pH 5.5 (5.0-8.5) Ur Specific [place] 1.020 (1.000-1.030) Urine Protein Negative (Negative) Urine Glucose (UA) Negative (Negative) Urine Ketones Negative (Negative) Urine Blood Negative (Negative) Urine Nitrite Negative (Negative) Urine Bilirubin Negative (Negative) Urine Urobilinogen 0.2 (0.2-1.0) Ur Leukocyte Esterase 2+ A (Negative) Urine RBC 5-10 A (0-2) Urine WBC 25-50 A (0-5) Ur Squamous Epith Cells Moderate A (None-Few) Urine Bacteria Many A (None) POC Creatinine 0.9 (0.6-1.3) mg/dl <Rai Hays MD - Last Filed: 11/15/24 10:13> Imaging Data CT scan - abdomen: Attestation: I have reviewed the pertinent imaging results. <Nia Young MD - Last Filed: 11/18/24 23:57> My impression: Mild hydronephrosis with tiny UVJ stone <Nia Young MD - Last Filed: 11/18/24 23:57> Radiologist's impression: IMPRESSION: 1. Punctate stone near the right ureterovesicular junction causing mild hydroureteronephrosis and perinephric stranding. Superimposed infection could be considered in the appropriate clinical setting. 2. Fatty change of the liver and splenomegaly. No ascites. Dictated by Ben Hastings MD @ 11/15/2024 9:57:15 AM Please note that all CT scans at this facility use dose modulation, iterative reconstruction, and/or weight-based dosing when appropriate to reduce radiation dose to as low as reasonably achievable. Dictated by: Ben Hastings MD @ 11/15/2024 09:57:31 <Nia Young MD - Last Filed: 11/18/24 23:57> Discharge Plan Discharge Clinical Impression: Kidney stone <Nia Young MD - Last Filed: 11/18/24 23:57> Patient Disposition: Home, Self-Care <Nia Young MD - Last Filed: 11/18/24 23:57> Condition: Stable <Nia Young MD - Last Filed: 11/18/24 23:57> Instructions: Kidney Stones (ED) <Nia Young MD - Last Filed: 11/18/24 23:57> Additional Instructions: Strain urine Drink plenty fluids Ciprofloxacin as directed Flomax as directed Bessie as directed no driving or using machinery while taking pain medication Follow-up with your doctor this coming week. <Nia Young MD - Last Filed: 11/18/24 23:57> Activity Level: No Restrictions <Nia Young MD - Last Filed: 11/18/24 23:57> No Restrictions <Rai Hays MD - Last Filed: 11/15/24 10:13> Discharge Diet: Regular <Nia Young MD - Last Filed: 11/18/24 23:57> Regular <Rai Hays MD - Last Filed: 11/15/24 10:13> Prescriptions: New tamsulosin [Flomax] 0.4 mg capsule 0.4 mg PO DAILY Qty: 14 0RF No Action meclizine 25 mg tablet 25 mg PO TID 10 Days Qty: 30 6RF aspirin 81 mg tablet,delayed release (DR/EC) 81 mg PO QDAY Ozempic 0.25 mg or 0.5 mg (2 mg/3 mL) pen injector 0.25 mg subcut QWEEK Qty: 1.84 0RF Rx Instructions: for 4 weeks hydrochlorothiazide 25 mg tablet 25 mg PO QAM Qty: 90 3RF amlodipine [Norvasc] 5 mg tablet 5 mg PO QDAY Qty: 90 3RF <Nia Young MD - Last Filed: 11/18/24 23:57> Follow Up/Referrals: Amelie Majano, BEARINGIZER, SKIN CARE THERAPIST [Primary Care Provider, Family Practice] <Nia Young MD - Last Filed: 11/18/24 23:57> Stand Alone Forms: MyHealth Info Instructions <Nia Young MD - Last Filed: 11/18/24 23:57>
--- NOTE | 2024-11-15 07:30 | CRLHL7_ITS ---
For Patients: As a result of the Century Cures Act, medical imaging exams and procedure reports are released immediately into your electronic medical record. You may view this report before your referring provider. If you have questions, please contact your health care provider. INDICATION: Right flank pain. Dysuria. TECHNIQUE: CT abdomen and pelvis acquired with 143 cc of Isovue 370 IV contrast. COMPARISON: None. FINDINGS: Lower chest: Unremarkable. Liver: Fatty change. No focal lesion. Spleen: Enlarged at 15.8 cm in craniocaudal length. No focal lesion. Pancreas: Unremarkable. Gallbladder and bile ducts: Cholecystectomy. No biliary ductal dilatation. Kidneys: Punctate stone near the right ureterovesicular junction causes mild hydroureteronephrosis and perinephric stranding. No additional evidence of urolithiasis. Incidental right renal and left parapelvic cysts. Adrenal glands: Unremarkable. GI tract: Gastric bypass changes. No obstruction or focal inflammatory changes. Normal appendix. Small fat containing umbilical hernia. No free air or free fluid. Lymph nodes: No pathologic lymphadenopathy. Vascular structures: Unremarkable. Pelvic Organs: Fibroid uterus. Adnexal regions and bladder as imaged are unremarkable. Bones: No acute or suspicious osseous abnormality. Degenerative changes spine and pelvis. Right hip arthroplasty appears intact. IMPRESSION: 1. Punctate stone near the right ureterovesicular junction causing mild hydroureteronephrosis and perinephric stranding. Superimposed infection could be considered in the appropriate clinical setting. 2. Fatty change of the liver and splenomegaly. No ascites. Dictated by Ben Hastings MD @ 11/15/2024 9:57:15 AM Please note that all CT scans at this facility use dose modulation, iterative reconstruction, and/or weight-based dosing when appropriate to reduce radiation dose to as low as reasonably achievable. Dictated by: Ben Hastings MD @ 11/15/2024 09:57:31 (Electronically Signed)
[2024-11-15] MEDS: ONDANSETRON ODT 4 MG TAB PO (07:42)
[2024-11-15] MEDS: OXYCODONE 5 MG TABLET PO (07:42)
[2024-11-15 07:46] LABS: Basophils Absolute Auto 0.03 K/uL (0.00-0.30); Basophils Percent Auto 0.6 % (0.0-3.0); Eosinophils Absolute Auto 0.05 K/uL (0.00-0.50); Hematocrit 36.8 % (33.0-51.0); Hemoglobin* 12.1 gm/dL (12.0-16.0); Immature Granulocytes Abs Auto 0.01 K/uL (0.00-0.30); Immature Granulocytes Pct Auto 0.2 %; Lymphocytes Absolute Auto 1.25 K/uL (0.90-2.90); Lymphocytes Percent Auto 25.5 % (20-44); Mean Corpuscular HGB Conc 33 gm/dL (32-36); Mean Corpuscular Hemoglobin 29 pg (26-34); Mean Corpuscular Volume 88 fL (80-100); Monocytes Percent Auto 9.2 % (0.0-11.0); Neutrophils Absolute Auto 3.12 K/uL (1.7-7.0); Neutrophils Percent Auto 63.5 % (42.0-72.0); Platelet Count* 159 K/uL (140-440); RDW Coefficient of Variation % 12.8 % (11.5-15.5); White Blood Count* 4.91 K/uL (4.50-11.00)
[2024-11-15 07:47] LABS: Creatinine, Point-of-Care* 0.9 mg/dl (0.6-1.3)
[2024-11-15 07:48] LABS: Lactate* 1.8 mmol/L (0.5-1.9); Slide Review Reflex No
[2024-11-15 08:17] LABS: Albumin* 3.6 g/dL (3.3-5.0); Chloride* 111 mmol/L (96-114); Potassium* 3.6 mmol/L (3.6-5.1); Sodium* 140 mmol/L (135-149)
[2024-11-15 08:20] LABS: Alanine Aminotransferase* 24 U/L (4-35); Alkaline Phosphatase* 66 U/L (40-150); Anion Gap 7 mEq/L (7-15); Aspartate Amino Transferase* 28 U/L (12-35); Bilirubin Total* 0.6 mg/dL (0.1-1.5); Blood Urea Nitrogen* 16 mg/dL (7-30); Calcium* 8.9 mg/dL (8.4-10.6); Carbon Dioxide* 22 mmol/L (20-32); Creatinine* 0.7 mg/dL (0.5-1.5); Est. Creatinine Clearance* 56.72; Estimated Glomerular Filt Rate 98 ml/min; Glucose* 110 mg/dL (60-115); Lipase* 113 U/L (23-300)
[2024-11-15 08:23] LABS: C Reactive Protein* 0.5 mg/dL (0.5-1.0)
== END 2024-11-15 10:48 | disposition home or self-care (01) ==
PROVIDERS: Emergency Provider Family Medicine; PCP Nurse Practitioner Family
DX: N20.0 Calculus of kidney (principal)
CPT/HCPCS: 36415; 74177; 80053; 81001; 82565; 83605; 83690; 85025; 86140; 87086; 99283; 99284; A9270; Q9967

== ENCOUNTER 2024-12-18 11:20 | Outpatient (CLI) | payer OTHER, SELFPAY ==
--- NOTE | 2024-12-18 11:30 | CRLHL7_ITS ---
For Patients: As a result of the Century Cures Act, medical imaging exams and procedure reports are released immediately into your electronic medical record. You may view this report before your referring provider. If you have questions, please contact your health care provider. INDICATION: BILATERAL SCREENING MAMOGRAM, ASYMPTOMATIC 64 Y/O FEMALE COMPARISON: 10/05/2021, 11/10/2018, 08/09/2016 TECHNIQUE: Digital mammogram in CC and MLO projections including computer-aided detection (CAD) and tomosynthesis. BREAST COMPOSITION: There are scattered areas of fibroglandular density. FINDINGS: No suspicious findings. ASSESSMENT: BI-RADS 2 Benign RECOMMENDATION: Annual screening mammogram. A lay language report of this examination will be provided to the patient. Dictated by: Scottie Santiago MD @ 12/21/2024 10:11:02 (Electronically Signed)
== END 2024-12-18 11:21 | disposition home or self-care (01) ==
LOC: MAMMO 11:20
PROVIDERS: PCP Nurse Practitioner Family; Visit Provider Nurse Practitioner Family
DX: Z12.31 Encounter for screening mammogram for malignant neoplasm of breast (principal)
CPT/HCPCS: 77063; 77067

== ENCOUNTER 2025-01-01 07:25 | Outpatient (CLI) | payer OTHER, SELFPAY | END 2025-01-01 07:26 | disposition home or self-care (01) | LOC: KYNREF 08:23 | PROVIDERS: PCP Nurse Practitioner Family; Visit Provider Nurse Practitioner Family | DX: E78.5 Hyperlipidemia, unspecified (principal) | CPT/HCPCS: 80061 ==

== ENCOUNTER 2025-01-14 13:06 | Outpatient (CLI) | payer OTHER, SELFPAY | END 2025-01-14 13:07 | disposition home or self-care (01) | PROVIDERS: PCP Nurse Practitioner Family; Visit Provider Nurse Practitioner Family | DX: M25.50 Pain in unspecified joint (principal); R20.2 Paresthesia of skin; Z11.8 Encounter for screening for other infectious and parasitic diseases | CPT/HCPCS: 82607; 85025; 85651; 86038; 86140; 86200; 86431; 86618; 86812 ==

== ENCOUNTER 2025-04-26 11:28 | Outpatient (CLI) | payer OTHER, SELFPAY ==
--- NOTE | 2025-04-26 13:05 | P.ANES_ITS ---
Anesthesia Charges Start Date/Time Anesthesia Start Date: 04/26/25 Anesthesia Start Time: 12:33 Stop Date/Time Anesthesia Stop Date: 04/26/25 Anesthesia Stop Time: 13:03 Coding CPT Codes CPT Codes: ANES LWR INTST NDSC NOS - 08378 ([id number]) P3 - PATIENT W/SEVERE SYS DISEASE, QK - ASSISTANT PROFESSOR OF HISTORY 2-4 CNCRNT ANES PROC, QX - ARMATURE WINDER SVC W/ MD MED DIRECTION
--- NOTE | 2025-04-26 13:05 | W.ANESCHARGE ---
Anesthesia Charges Start Date/Time Anesthesia Start Date: 04/26/25 Anesthesia Start Time: 12:33 Stop Date/Time Anesthesia Stop Date: 04/26/25 Anesthesia Stop Time: 13:03 Coding CPT Codes CPT Codes: ANES LWR INTST NDSC NOS - 27297 ([id number]) P3 - PATIENT W/SEVERE SYS DISEASE, QK - DESIGN ASSISTANT 2-4 CNCRNT ANES PROC, QX - REGIONAL FACILITIES SPECIALIST SVC W/ MD MED DIRECTION
--- NOTE | 2025-04-26 13:17 | P.ANES_ITS ---
Anesthesia Charges Start Date/Time Anesthesia Start Date: 04/26/25 Anesthesia Start Time: 12:33 Stop Date/Time Anesthesia Stop Date: 04/26/25 Anesthesia Stop Time: 13:03 Coding CPT Codes CPT Codes: ANES LWR INTST NDSC NOS - 30098 ([id number]) QK - COMMUNICATION ASSISTANT 2-4 CNCRNT ANES PROC, QX - ARMHOLE BASTER JUMPBASTING SVC W/ MED DIRECTION, P3 - PATIENT W/SEVERE SYS DISEASE
--- NOTE | 2025-04-26 13:17 | W.ANESCHARGE ---
Anesthesia Charges Start Date/Time Anesthesia Start Date: 04/26/25 Anesthesia Start Time: 12:33 Stop Date/Time Anesthesia Stop Date: 04/26/25 Anesthesia Stop Time: 13:03 Coding CPT Codes CPT Codes: ANES LWR INTST NDSC NOS - 51067 ([id number]) QK - WOOD REPATCHER 2-4 CNCRNT ANES PROC, QX - HOISTING ENGINEER PILE DRIVING SVC W/ MED DIRECTION, P3 - PATIENT W/SEVERE SYS DISEASE
== END 2025-04-26 11:29 | disposition home or self-care (01) ==
LOC: OP CLINIC 11:29
PROVIDERS: PCP Nurse Practitioner Family; Visit Provider Surgery
DX: Z12.11 Encounter for screening for malignant neoplasm of colon (principal); D12.5 Benign neoplasm of sigmoid colon; D12.8 Benign neoplasm of rectum; R19.5 Other fecal abnormalities; K64.8 Other hemorrhoids
CPT/HCPCS: 00811; 00812; 45385; J2704